=== PATIENT | male | born 1975 | race African-American/Black ===

== ENCOUNTER 2017-07-26 19:25 | Inpatient (IN) | payer MEDICARE, MEDICAID ==
[~2017-07-26] VITALS: Ht 180.3 cm; Wt 99.8 kg
[2017-07-26] MEDS ORDERED: CLONIDINE HCL0.2 M2 (19:36)
[2017-07-26] MEDS ORDERED: LOPRESSOR25 PO (19:36)
[2017-07-26] MEDS ORDERED: NORVASC10 MG PO (19:36)
[2017-07-26] MEDS ORDERED: TUMS (19:37)
[2017-07-26] MEDS ORDERED: RENVELA800 MG (19:37)
[2017-07-26] MEDS ORDERED: FLOMAX0.4 MG (19:37)
[2017-07-26 19:38] VITALS: BP 207/113
[2017-07-26 20:04] LABS: ABSOLUTE BASOPHILS 0.1 thou/uL (0.0-0.2); ABSOLUTE EOSINOPHILS 0.1 thou/uL (0.0-0.7); ABSOLUTE LYMPHOCYTES 2.9 thou/uL (0.8-5.3); ABSOLUTE MONOCYTES 0.6 thou/uL (0.0-1.2); ABSOLUTE NEUTROPHILS 3.8 thou/uL (1.6-8.1); BASOPHILS 1.3 %; EOSINOPHILS 0.9 %; HEMATOCRIT 41.1 % (42.0-52.0); HEMOGLOBIN 13.5 gm/dL (14.0-18.0); LYMPHOCYTES 38.8 %; MCH 30.9 pg (26.0-34.0); MCV 93.6 fL (80.0-100.0); MONOCYTES 8.1 %; MPV 9.2 fl. (7.2-11.1); NUCLEATED RBCS 0 /100WBC; PLATELET COUNT* 241 thou/uL (150-400); POLYS 50.9 %; RBC 4.39 mil/uL (4.50-6.00); RDW-CV 13.9 % (10.5-14.5); WBC 7.5 thou/uL (4.0-11.0)
[2017-07-26] MEDS ORDERED: [UNRECOGNIZED DRUG - OTHER] PO (20:13)
[2017-07-26 20:14] LABS: CALCIUM 9.4 mg/dL (8.5-10.1); CREATININE 20.8 mg/dL (0.6-1.3)
[2017-07-26] MEDS ORDERED: LIDO-PRILO CAI1 EACH TP (20:14)
[2017-07-26 20:23] LABS: ALBUMIN 3.9 g/dL (3.4-5.0); TOTAL BILIRUBIN 0.4 mg/dL (<0.1-1.0); TOTAL PROTEIN 8.6 g/dL (6.4-8.2); TROPONIN-I LEVEL 0.11 ng/mL (<0.06)
[2017-07-27 01:18] VITALS: BP 142/81
[2017-07-27 05:31] VITALS: BP 139/87
[2017-07-27 07:32] VITALS: BP 140/82
[2017-07-27 10:43] VITALS: BP 138/78
--- NOTE | 2017-07-27 10:58 | NUR ---
PATIENT PLACED ON SWITCHBOARD MANAGER WHILE IN DIALYSIS. PATIENT TRACING NSR.
[2017-07-27 11:37] LABS: CREATININE 20.1 mg/dL (0.6-1.3)
--- NOTE | 2017-07-27 15:00 | NUR ---
DIALYSIS NURSE CALLED THIS RN AT THIS TIME AND STATED SECURITY WAS LOOKING FOR THE PATIENT. SHE STATED SHE WENT TO CHECK ON ANOTHER PATIENT, AND UPON GOING BACK INTO THE ROOM, THE PATIENT HAD TAKEN THE CARDIAC LEADS OFF AND WAS GONE.
--- NOTE | 2017-07-27 16:27 | NUR ---
Pt was not found. Contacted pt by phone, no asnswer. Called emergency contact. pt was placed on phone. Pt stated he had the monitor and was asked to bring it back. Pt has stated he will return it this evening. We will give pt back his medications he left in the bed when he arrives. Pt left AMA from the dialysis room. Was seen later on camera leaving with lindsay. took teletypesetter monitor with him at that time.
--- NOTE | 2017-07-27 16:29 | EKG ---
[place] [address] ELECTROCARDIOGRAM REPORT Name: DANIELLE SORENSON Room: [place] [address] ADM IN [facility].#: [id number] Admission: 07/26/17 Attend Phys: Carlo Lombardo Discharge: Date of : 73 Report #: [id number] THIS REPORT FOR: //name// [facility] ED Test Date: 2017-07-26 Test Time: 22:59:02 Pat Name: DANIELLE SORENSON Department: Room: [facility] Gender: M Box Builder: ANGELO : 1975 Requested By: Adelina Grajeda Order Number: [id number] MD: Jerson Givens Measurements Intervals [place] Rate: 60 P: -10 [place]: 163 QRS: 32 QRSD: 103 T: -2 QT: 431 QTc: 431 Interpretive Statements Sinus rhythm Borderline T abnormalities, inferior leads No previous ECG available for comparison Electronically Signed On 07-27-2017 16:28:51 CDT by Jerson Givens [email or web address] <ELECTRONICALLY SIGNED> By: Jerson Givens MD, [facility] 07/27/17 1628 [id number] [id number] Jerson Givens MD, [facility] /EPI
--- NOTE | 2017-07-27 16:29 | EKG ---
[place] [address] ELECTROCARDIOGRAM REPORT Name: DANIELLE SORENSON Room: [place] [address] [facility].#: [id number] Admission: 07/26/17 Attend Phys: Carlo Lombardo Discharge: Date of : 73 Report #: [id number] THIS REPORT FOR: //name// [facility] ED Test Date: 2017-07-26 Test Time: 20:23:19 Pat Name: DANIELLE SORENSON Department: Room: [facility] Gender: M Ultrasound Technician: ALAYNA : 1975 Requested By: Adelina Grajeda Order Number: [id number] MD: Jerson Givens Measurements Intervals [place] Rate: 71 P: -15 SD: 156 QRS: 39 QRSD: 105 T: 1 QT: 404 QTc: 439 Interpretive Statements Sinus rhythm Borderline ST elevation, anterior leads Baseline wander in lead(s) V1 No previous ECG available for comparison Electronically Signed On 07-27-2017 16:28:47 CDT by Jerson Givens [email or web address] <ELECTRONICALLY SIGNED> By: Jerson Givens MD, [facility] 07/27/17 1628 22 22 Jerson Givens MD, [facility] /EPI
--- NOTE | 2017-07-28 16:44 | CON ---
[address] [address] CONSULTATION Name: DANIELLE SORENSON Luis Manuel Room: [address] [place]#: [id number] Admission: 07/26/17 Attend Phys: Carlo Lombardo Discharge: 07/27/17 Date of : 73 Report #: [id number] THIS REPORT FOR: //name// CC: RALPH physician/PCP Khoi Briones DATE OF SERVICE: 07/27/2017 CONSULTING PHYSICIAN: Khoi Briones DO REASON FOR NEPHROLOGY CONSULTATION: Hyperkalemia, end-stage renal disease, missed dialysis. CHIEF COMPLAINT: This patient has missed his dialysis. HISTORY OF PRESENT ILLNESS: This is a 41-year-old very pleasant -[place] male who has past medical history of end-stage renal disease, on hemodialysis, goes to [facility] every Wednesday, , and Wednesday; history of hypertension and end-stage renal disease, most likely because of hypertension, came in because he had missed his last dialysis, which was on Wednesday. Unfortunately, Wednesday evening, he got arrested and he was unable to get his dialysis, now he has been released from police custody. His potassium is 6 today, his last dialysis was last . He makes a small amount of urine. He has a tunneled dialysis catheter and right IJ, he also has a maturing left arm AV fistula. He is not short of breath. Arrangements for dialysis will be made for him today and his troponin is also mildly elevated. REVIEW OF SYSTEMS: The patient is just feeling very tired, no shortness of breath, no chest pain and other review of systems were done and they were negative. PAST MEDICAL HISTORY: Includes history of hypertension, end-stage renal disease, on hemodialysis every Wednesday, , Wednesday; history of BPH, and secondary hyperparathyroidism. PAST SURGICAL HISTORY: Includes right IJ tunneled dialysis catheter and then he had a left arm AV fistula. ALLERGIES: No known drug allergies. FAMILY HISTORY: No history of kidney disease in the family. SOCIAL HISTORY: He is denying smoking or using alcohol or recreational drugs. HOME MEDICATIONS: Include clonidine, metoprolol, amlodipine, tamsulosin, sevelamer, calcium carbonate, lidocaine [place] [address] CONSULTATION Name: DANIELLE SORENSON Room: [address]#: [id number] Admission: 07/26/17 Attend Phys: Carlo Lombardo Discharge: 07/27/17 Date of : 73 Report #: [id number] PHYSICAL EXAMINATION: VITAL SIGNS: Blood pressure is 160/99, pulse ox is 100% on room air, pulse rate is 61, respiratory rate is 16, and temperature 36.8. GENERAL: He is awake, alert, oriented. HEAD, EYES, EARS, NOSE, AND THROAT: Atraumatic, normocephalic. Mucous membranes are moist. NECK: There is no JVD. CHEST: Clear to auscultation bilaterally. No crackles or wheezing. CARDIOVASCULAR: S1, S2 normal. No murmurs. ABDOMEN: Soft, nontender, nondistended. Bowel sounds are present. EXTREMITIES: He has left arm AV fistula with good bruit and good thrill and he has a right IJ tunneled dialysis catheter, however, the site looks intact. No erythema or drainage around the site. Lower extremities symmetrical, no edema. NEUROLOGICAL FUNCTION: Gross neurological function is intact. PSYCHIATRIC: Mood and affect seem to be normal. LABS: From 1954 last night, hemoglobin was 13.5. Also, his potassium was 6 last night, CO2 of 17, BUN of 74, sodium of 136, and other labs were reviewed. IMAGING: No imaging to be reviewed. ASSESSMENT AND PLAN: 1. History of end-stage renal disease, on hemodialysis every Wednesday, and Wednesday, missed his last dialysis treatment: The patient will be dialyzed today and then will be dialyzed as per his Wednesday, , Wednesday schedule. He has a tunneled dialysis catheter, which is used for dialysis and he has AV fistula, which is maturing in his left arm. 2. Metabolic acidosis: This is because of renal dysfunction. He will get better after dialysis. 3. History of secondary hyperparathyroidism: Continue his phos binders, we will check a phosphorus tomorrow. 4. Hypermagnesemia: Avoid any magnesium containing compounds. 5. Anemia of chronic kidney disease: Hemoglobin is at goal, no need for Epogen or iron. 6. Elevated troponin: This should be trended, we will defer this to primary for further investigation for that. Thank you for this consultation. I will continue to follow along with you. <ELECTRONICALLY SIGNED> By: Delmi Mahan MD 07/28/17 1644 [id number] Mahan MD /nt
== END 2017-07-27 16:00 | disposition left against medical advice (07) | DRG 640 ==
LOC: M.ERS 19:25 → M.TBA-ER 21:35 → M.2W 07-27 14:16 → M.TBA-ER 07-27 15:13
PROVIDERS: Internal Medicine; Personal Emergency Response Attendant; ADMIT Internal Medicine
DX: E87.5 Hyperkalemia (principal); N18.6 End stage renal disease; I12.0 Hypertensive chronic kidney disease with stage 5 chronic kidney disease or end stage renal disease; E83.41 Hypermagnesemia; N40.0 Benign prostatic hyperplasia without lower urinary tract symptoms; D63.8 Anemia in other chronic diseases classified elsewhere; E87.70 Fluid overload, unspecified; Z53.21 Procedure and treatment not carried out due to patient leaving prior to being seen by health care provider; Z99.2 Dependence on renal dialysis